=== PATIENT | female | born 1995 | race Caucasian/White ===

== ENCOUNTER 2016-11-15 15:17 | Observation (INO) | payer OTHER, MEDICAID ==
[~2016-11-15] VITALS: Ht 175.3 cm; Wt 101.3 kg
--- NOTE | ~2016-11-15 | ECH ---
Transthoracic Echocardiography Report (TTE) Demographics Patient Name REINALDO NARANJO Date of Study 11/16/2016 Patient Number [id number] Visit Number [id number] Date of 1995 Room Number 408 Accession Number [id number] Gender Female Age 20 year(s) Referring Dawson You Underwriter Solicitation Director Daya Mehta [facility] Physician Golden Velasquez Physician Interpreting Luann Irizarry Reclamation Engineer Physician MD Supervising Ordering Physician Golden Velasquez MD/P Nurse Stress Senior Mortgage Loan Processor Conclusions Summary Technically adequate exam. The estimated left ventricular ejection fraction is 60-65%. The left ventricle is mildly dilated . Normal right ventricle structure and function. Mild tricuspid regurgitation by color Doppler. Estimated pulmonary pressures within normal limits. Trivial pulmonic valve regurgitation by color Doppler. Procedure Type of Study TTE procedure:Echo Complete SF. Procedure Date Date: 11/16/2016 Start: 11:00 AM Technical Quality: Adequate visualization Indications:Dyspnea. Additional Indications:DVT Appropriate Use Criteria: 9 Height: 69 inches Weight: 223 pounds BSA: 2.16 m Rhythm: Within normal limits HR: 69 bpm BP: 104/54 mmHg M-Mode/2D Measurements LV Diastolic Dimension: 5.66 cm LV Systolic Dimension: 4.22 cm LV Septum Diastolic: 0.96 cm LV PW Diastolic: 0.94 cm AO Root Dimension: 2.37 cm Cardiac Output: 5.52 l/min LA Dimension: 3.8 cm Cardiac Index: 2.56 l/min*m RV Diastolic Dimension: 3.01 cm LA volume index: 32 ml/m LVOT: 1.97 cm LVOT VTI: 26.26 cm RV Base: 3.8 cm LV Stroke volume: 80 ml RV Mid: 2.6 cm LV Stroke volume index: 37.04 ml/m RV Length: 7 cm TAPSE: 2.45 cm Doppler Measurements AV Peak Velocity: 1.46 m/s MV Peak E-Wave: 0.7 m/s AV Peak Gradient: 8.53 mmHg MV Peak A-Wave: 0.79 m/s AV Mean Gradient: 5.03 mmHg MV E/A Ratio: 0.89 LVOT Peak Velocity: 1.29 m/s MV P1/2t: 50.7 msec AV Area (Continuity):2.55 cm MV Deceleration Time: 174.8 msec TR Velocity:2.13 m/s MV Area (PHT): 4.34 cm TR Gradient:18.09 mmHg PV Peak Velocity: 1.26 m/s Estimated RAP:3 mmHg PV Peak Gradient: 6.34 mmHg Estimated RVSP: 21 mmHg Estimated PASP: 21.09 mmHg RA Area: 12.64 cm Findings Left Ventricle The left ventricle is mildly dilated . Diastolic assessment reveals Grade I diastolic dysfunction. Right Ventricle Normal right ventricle structure and function. Left Atrium Normal left atrial size. Right Atrium Normal right atrial size. Mitral Valve Normal mitral valve structure and function. No mitral regurgitation by color Doppler. Aortic Valve Normal aortic valve structure and function. There is no aortic regurgitation by color Doppler. Tricuspid Valve Normal appearing tricuspid valve. Mild tricuspid regurgitation by color Doppler. Estimated pulmonary pressures within normal limits. Pulmonic Valve Normal pulmonic valve structure and function. Trivial pulmonic valve regurgitation by color Doppler. Pericardial Effusion No evidence of pericardial effusion. Miscellaneous Visualized portions of the aortic root and ascending aorta appear normal in size. Pleural Effusion No evidence of pleural effusion. Contractility Score LV regional wall motion:(0-Non visualized 1-Normal 2-Hypokinesis 3-Akinesis 4-Dyskinesis 5-Aneurysm) Signature
[2016-11-17] MEDS ORDERED: PRENATAL VIT1 TAB PO (11:23)
[2016-11-17] MEDS ORDERED: LOVENOX100 MG/1 M SQ (11:24)
[2016-11-17] MEDS ORDERED: PROVENTIL HFA6.7 GM IH (11:24)
--- NOTE | 2016-11-24 18:26 | CO ---
ADMIT: 11/15/2016 RM/LOC: 408 [facility] MR#: [id number] [address] [id number] REINALDO PATEL [address] [place] [address] Consultation SEX: F AGE: 20 : 1995 DATE OF CONSULTATION: 11/16/2016 ATTENDING PHYSICIAN: Ron Franks CONSULTING PHYSICIAN: Micha Osman MD REASON FOR CONSULTATION: DVT, possible PE, . HISTORY OF PRESENT ILLNESS: Mrs. Patel is a very pleasant 20-year-old , who presented to clinic yesterday with Dr. Franks to establish for OB care when she complained about having one week of shortness of breath and dyspnea on exertion. She is 6 weeks zero days based on first trimester ultrasound performed yesterday when she had previously thought she was approximately 9 weeks based on LMP. In addition to the shortness of breath complaints, she has had intermittent palpitations. No significant gastric reflux and no significant nausea except for the morning of consultation was her first bout. Last night, she was started on Lovenox and she did practice giving herself a shot this morning. She said that at rest, she feels okay but any sort of exertion such as simply walking across the room provokes shortness of breath still. DVT was discovered in her right superficial femoral and popliteal vein, but she has no associated swelling or pain in that leg prior to them pressing hard during the ultrasound assessment. She has never had a clot before nor does she have a family history of clot. PAST MEDICAL HISTORY: Significant for: 1. Asthma as a child. 2. Endometriosis. 3. History of nicotine use in the past. 4. History of right breast lumpectomy for benign disease. 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 Her first delivery was vaginal with Pitocin for augmentation of arrested labor and was otherwise uncomplicated. She did use an epidural during this past delivery. MEDICATIONS: vitamin. ALLERGIES: SULFA. FAMILY HISTORY: Reviewed and noncontributory. No family history of clots or cancers. SOCIAL HISTORY: The patient is to her spouse, John. She is a previous smoker. 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 REVIEW OF SYSTEMS: A complete review of systems was conducted and found to be negative except for what was mentioned above in HPI. ADMIT: 11/15/2016 RM/LOC: 408 [facility] MR#: [id number] [address] [address] REINALDO PATEL [address] [place] [address] Consultation SEX: F AGE: 20 : 1995 PHYSICAL EXAMINATION: VITAL SIGNS: Temp 98.4, pulse 76, respiratory rate 16, blood pressure 104/54, saturating 96% on room air. GENERAL: This is an alert, oriented x3 adult female, sitting up comfortably in bed and is a good historian. HEENT: Pupils are equal, round, and reactive to light. Mouth is free from oral lesions. Moist mucous membranes. NECK: Shows trachea midline. No thyromegaly, and no lymphadenopathy. HEART: Regular rate and rhythm. No murmurs, rubs, or gallops. LUNGS: Mild expiratory wheezes throughout. Otherwise, no increased respiratory effort at rest. No respiratory retractions. ABDOMEN: Soft. Nontender to palpation. Nondistended. Bowel sounds are positive. MUSCULOSKELETAL: Strength is 5/5 in all extremities. No swollen or inflamed joints. SKIN: There are no rashes or bruising. No concerning pigmented lesions. EXTREMITIES: No clubbing. No cyanosis. No edema. NEUROLOGIC: Cranial nerves II through XII are grossly intact. No focal deficits. PSYCH: Mood is euthymic. Affect is full and mood congruent. LABORATORY AND RADIOLOGY: Pending labs include protein C and S, antiphospholipid antibodies, cardiolipin antibodies, beta-2 glycoprotein antibodies, antithrombin III, factor V Leiden gene mutation, prothrombin gene mutation, and lupus anticoagulant panel. On 11/15/2016, Doppler ultrasound of lower extremities showed no clot in the left lower extremity but a distal right superficial femoral and proximal right popliteal DVT. On 11/15/2016, first trimester transvaginal ultrasound, crown rumpling suggest gestation of 5 weeks 6 days, normal appearing ovaries. IMPRESSION AND RECOMMENDATIONS: A 20-year-old female with right lower extremity deep vein thrombosis, possible pulmonary embolism. 1. Deep vein thrombosis/possible pulmonary embolism. We discussed possible etiology of this clot with the recognized risks factor of being the leading culprit. Additional workup has been sent by her primary care physician. Some of these tests must be interpreted with caution as routinely protein S goes down in and is less reliable. Regardless of these results, management for this will not be changed. We discussed recommendations of being on Lovenox, preferably twice daily at 1 mg/kg for the duration of her and extending to 6 weeks beyond delivery. We also did discuss that after the 36th week of , we could consider switching to unfractionated heparin in order to facilitate a greater chance for receiving a safe epidural for anesthesia. This will be addressed at followup for definitive plan. The patient is agreeable and willing to give herself twice daily injections. ADMIT: 11/15/2016 RM/LOC: [address] [place] [address] MR#: [id number] [address] [place] [id number] ESTEFANIREINALDO MCNEILL [address] [place] [address] Consultation SEX: F AGE: 20 : 1995 I would like to assess the adequacy of this dose by testing an anti-Xa level at 4 hours after her fourth injection. Waiting until the third or fourth injection will better achieve a steady state and be more reliable and meaningful lab result. Since she is planning to discharge from the hospital today prior to her fourth dose, I will ask her to return to our clinic tomorrow morning four hours after she injects herself in the morning for a Xa level assessment. Thank you for this interesting consultation. We will continue to contribute to her OB care during this with clinical followup. Please call with any further questions. TOTAL TIME SPENT: 60 minutes. Micha Osman MD/ endy JOB #: [id number] CC: Ron Franks, Attending Physician FAMILY PHYSICIAN, Family Physician
--- NOTE | 2016-12-06 08:20 | HP ---
ADMIT: 11/15/2016 RM/LOC: 408 [facility] MR#: [id number] [address] [address] REINALDO NARANJO [address] [place] [address] History and Physical SEX: F AGE: 20 : 1995 DATE OF SERVICE: 11/15/2016 CHIEF COMPLAINT: Shortness of breath, and establish care for . HISTORY OF PRESENT ILLNESS: Reinaldo is a very pleasant 20-year-old, 3, para 1-0-1-1, presents to clinic today to establish OB care and for the above complaints. She thought that she was approximately 9 weeks or so. has been uncomplicated other than over the last week she has been having more shortness of breath. She was actually evaluated in the Emergency Department in [place] in the last week for this shortness of breath. She notes that her vitals were stable, they felt that potentially allergies or anxiety could be causing her symptoms. Despite this, she has continued to have symptoms intermittently. She notes palpitations from time to time and at that point, just feels like she cannot get her breath. She notes that when she was younger she did have asthma, but no history of asthma recently. She does admit that anxiety could be possibility as she has had anxiety issues in the past, but does not feel anxious at this point. The patient had not had any recent travel, any family history of blood clots, no previous blood clots. 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 The patient denies any recent long trips or other travel. No other significant swelling in her leg other than mild bilateral trace swelling, now which is chronic for the most part. No other significant concerns today. PAST MEDICAL HISTORY: Includes a remote history of asthma; history of endometriosis; history of abnormal Pap smears in the past; history of nicotine use in the past, but currently none; history of right breast lumpectomy, which was negative. PREVIOUS OBSTETRICAL HISTORY: She has had 1 term delivery of a little girl. Spontaneous early miscarriage in the past. This is her 3rd . MEDICATIONS: vitamin. ALLERGIES: SULFA DRUG CAUSES SKIN REACTION, HIVES, AND SWELLING. FAMILY HISTORY: Noncontributory. No history of significant cancers, or blood clots. SOCIAL HISTORY: The patient is . Her spouse is named, John. They have 1 daughter together. Previously a smoker, but no longer smokes. Uses approximately 1 to 2 caffeinated beverages a day. Her and her family live in [place]. She works with [employer] for [employer] [place]. REVIEW OF SYSTEMS: Per HPI, otherwise negative. PHYSICAL EXAMINATION: VITAL SIGNS: Blood pressure 120/76, pulse 81, respirations 22, O2 saturations 98%. Weight 223 pounds. ADMIT: 11/15/2016 RM/LOC: 408 [facility] MR#: [id number] [address] [place] [id number] [place] [address] History and Physical SEX: F AGE: 20 : 1995 GENERAL: Alert and oriented x3, does not appear in any acute distress. She does seem to be slightly anxious, breathing more rapidly at times. States that she just cannot get a deep breath. HEENT: Pupils equal, round, and reactive. Extraocular muscles intact. Throat clear. Trachea midline. HEART: Regular rate and rhythm. No murmurs. LUNGS: Clear to auscultation bilaterally. ABDOMEN: Soft. : Unable to palpate uterus. BREAST: Normal. CERVICAL: Showed closed cervix. EXTREMITIES: With trace edema bilaterally. No significant tenderness in the lower extremities. NEUROLOGIC: Cranial nerves II through XII grossly intact. No focal deficits. IMAGING: The patient had a bilateral venous Doppler ultrasound done this afternoon showing nonocclusive deep vein thrombus in the distal right superficial femoral vein and in the proximal right popliteal vein, no deep vein thrombus identified in the left lower extremity. Early transvaginal ultrasound showed a single intrauterine fetus at 5 weeks and 6 days. ASSESSMENT: A 20-year-old female with; 1. Acute spontaneous right popliteal and superficial deep vein thromboses. 2. , early approximately 5 weeks and 6 days. 3. Dyspnea, likely with pulmonary embolism. 4. Obesity. 5. History of endometriosis. 6. History of early miscarriage. PLAN: Given new 1st onset of acute DVT and the complication of , we will admit for outpatient observation to further evaluate and initiate treatment. Hypercoagulable labs obtained. We will start on Lovenox 1 mg/kg twice a day. I did discuss risks of bleeding with the patient, and she understands that benefits outweigh risks with her acute DVT. The patient ADMIT: 11/15/2016 RM/LOC: 408 [facility] MR#: [id number] [address] [place] [id number] [place] [address] [place] [address] History and Physical SEX: F AGE: 20 : 1995 likely with pulmonary embolism as well, however, given , not a candidate for CTA of the chest. At this point, confirmatory test of the PE will not alter treatment course, and discussed this with the patient. She is agreeable to not proceeding with PE and given her symptoms, we will assume that she likely has PE. We will further evaluate for heart strain with echocardiogram. I believe this will be stable and normal. If everything checks out, we will likely be able to discharge tomorrow. We will ask Hematology to evaluate the patient as well and follow along with . We will likely consult [facility] as an outpatient for any further recommendations. The patient was understanding plan and course of care and was in agreement with this. Ron Franks MD/ endy JOB #: [id number] CC: Ron Franks, Attending Physician NO FAMILY PHYSICIAN, Family Physician
== END 2016-11-16 16:05 | disposition home or self-care (01) ==
LOC: RAD.S 15:17 → 4PCU 17:06
PROVIDERS: ADMIT Family Medicine
DX: O22.31 Deep phlebothrombosis in pregnancy, first trimester (principal); I82.431 Acute embolism and thrombosis of right popliteal vein; Z3A.01 Less than 8 weeks gestation of pregnancy; E66.9 Obesity, unspecified; R06.00 Dyspnea, unspecified; Z98.890 Other specified postprocedural states; Z88.2 Allergy status to sulfonamides

== ENCOUNTER 2017-01-17 10:30 | Emergency (ER) | payer MEDICAID ==
[~2017-01-17 10:30] MED LIST: LOVENOX100 MG/1 M SQ; PRENATAL VIT1 TAB PO; PROVENTIL HFA6.7 GM IH
--- NOTE | 2017-01-22 14:44 | ER ---
ADMIT: 01/17/2017 RM/LOC: ER [facility] MR#: [id number] [address] [facility] [address] [place], [place] [address] REINALDO NARANJO [address] [place] [address] Emergency Room Report SEX: F AGE: 21 : 1995 DATE: 01/17/2017 ADDENDUM: CHIEF COMPLAINT: Cramping. HISTORY OF PRESENT ILLNESS: This is a 21-year-old female, who is about 18 weeks' . She said she has just had some lower cramping that started last night, also a little bit of clear vaginal discharge. COURSE IN THE EMERGENCY ROOM: I did check a urine, we got heart tones. Urine was clear. No signs of infection. heart tones were 155. Told her to try to push fluids. I told her if she is a little bit dehydrated that could cause some cramping and follow up with Dr. Franks if symptoms continue. CLINICAL IMPRESSION: Discomforts of in 2nd trimester. MIKE Rojas / Helio Luong MD / ronaldl JOB #: [id number] CC: Helio Luong MD, Attending Physician
== END 2017-01-17 12:15 | disposition home or self-care (01) ==
LOC: ER 10:30
DX: O99.89 Other specified diseases and conditions complicating pregnancy, childbirth and the puerperium (principal); R10.2 Pelvic and perineal pain; Z3A.18 18 weeks gestation of pregnancy; Z86.718 Personal history of other venous thrombosis and embolism; Z79.899 Other long term (current) drug therapy; Z88.2 Allergy status to sulfonamides